=== PATIENT | female | born 1990 | race Caucasian/White ===

== ENCOUNTER 2016-08-14 20:19 | Observation (INO) | payer OTHER ==
[~2016-08-14 20:19] MED LIST: ATIVAN0.5 MG PO; BUTALB-ACETAMI1 EAC2 PO; BUTALBIT-ACETA1 EAC1 PO; CLONAZEPAM1 M2 PO; CLONIDINE HCL0.1 M2 PO; FETZIMA80 M1 PO; IUD; KEPPRA1000 M1 PO; KEPPRA500 M2 PO; KEPPRA500 M3 PO; LEXAPRO20 MG PO; MULTIVITAMINS1 EAC6 PO; NO HOME MEDICATION XX; NORCO 5-325 TA1 EACH PO; OMEPRAZOLE40 M2 PO; PRENATAL VITAMI1 TAB PO; PRENATAL1 EACH PO; TRAMADOL HCL50 M2 PO; VIMPAT150 M1 PO; ZOFRAN ODT4 MG PO
[2016-08-14 21:12] LABS: BASO % 0.2 % (0-2); EOS % 1.1 % (0-7); EOSINOPHIL ABSOLUTE COUNT 0.2 tho/cmm (0.0-0.7); HCT-HEMATOCRIT 42.2 % (34.0-49.0); HGB-HEMOGLOBIN 14.2 gm/dl (12.0-15.5); IMMATURE GRANULOCYTES ABSOLUTE 0.04 tho/cmm (0-0.03); IMMATURE GRANULOCYTES PERCENT 0.3 % (0-0.3); LYMPH % 22.9 % (20-45); LYMPH ABSOLUTE COUNT 3.2 tho/cmm (0.8-4.5); MCH (MEAN CORPUSCULAR HGB) 31.6 pg (28.0-32.0); MCHC MEAN CORPUSCULAR HGB CONC 33.6 % (32.0-36.0); MEAN PLATELET VOLUME 10.2 cmc (9.4-12.4); MONO % 7.3 % (0-12); NEUTROPHIL ABSOLUTE COUNT 9.5 tho/cmm (1.6-8.0); NEUTROPHIL-AUTOMATED 9.5 tho/cmm (1.6-8.0); NEUTROPHILS % 68.2 % (40-80); PLATELET COUNT 412 tho/cmm (150-450); RED BLOOD COUNT 4.49 mil/cmm (4.00-5.20); RED CELL DISTRIBUTION WIDTH 12.2 % (12.4-16.4)
[2016-08-14 21:23] LABS: PREGNANCY-SERUM NEGATIVE (NEGATIVE)
[2016-08-14 21:34] LABS: URINE BILIRUBIN NEGATIVE (NEG); URINE BLOOD NEGATIVE (NEG); URINE GLUCOSE (UA) NEGATIVE (NEG); URINE KETONE NEGATIVE (NEG); URINE LEUKOCYTE ESTERASE NEGATIVE (NEG); URINE NITRITE NEGATIVE (NEG); URINE PROTEIN NEGATIVE (NEG)
[2016-08-14 21:35] LABS: ANION GAP 10 mmol/L (0-20); BLOOD UREA NITROGEN 5 mg/dl (6-24); CALCIUM 8.9 mg/dl (8.5-10.5); CARBON DIOXIDE-VENOUS 25 mmol/L (22-32); CHLORIDE 111 mmol/l (96-110); CREATININE 0.66 mg/dl (0.50-1.10); GLUCOSE 90 mg/dL (70-110); POTASSIUM 3.8 mmol/L (3.7-5.1); SODIUM 142 mmol/L (135-145); URINE APPEARANCE CLEAR; URINE COLOR YELLOW; eGFR VALUE FOR BLACK >90 mL/Min
[2016-08-14] MEDS ORDERED: NEURONTIN100 M1 PO (22:55)
[2016-08-15 08:15] LABS: BASO % 0.3 % (0-2); EOSINOPHIL ABSOLUTE COUNT 0.1 tho/cmm (0.0-0.7); HCT-HEMATOCRIT 41.8 % (34.0-49.0); HGB-HEMOGLOBIN 13.9 gm/dl (12.0-15.5); IMMATURE GRANULOCYTES ABSOLUTE 0.01 tho/cmm (0-0.03); IMMATURE GRANULOCYTES PERCENT 0.1 % (0-0.3); LYMPH % 29.9 % (20-45); LYMPH ABSOLUTE COUNT 2.1 tho/cmm (0.8-4.5); MCH (MEAN CORPUSCULAR HGB) 31.4 pg (28.0-32.0); MCHC MEAN CORPUSCULAR HGB CONC 33.3 % (32.0-36.0); MCV (MEAN CELL VOLUME) 94.6 fl (82.0-96.0); MEAN PLATELET VOLUME 10.2 cmc (9.4-12.4); MONO % 9.7 % (0-12); MONOCYTE ABSOLUTE COUNT 0.7 tho/cmm (0.0-1.2); NEUTROPHIL ABSOLUTE COUNT 4.1 tho/cmm (1.6-8.0); NEUTROPHIL-AUTOMATED 4.1 tho/cmm (1.6-8.0); PLATELET COUNT 366 tho/cmm (150-450); RED BLOOD COUNT 4.42 mil/cmm (4.00-5.20); RED CELL DISTRIBUTION WIDTH 12.3 % (12.4-16.4)
--- NOTE | 2016-08-15 11:40 | NUR ---
DR TSAI HERE. PT TAKEN TO EXAM ROOM IN L&D. IUD REMOVED BY DR TSAI WITHOUT DIFFICULTY
[2016-08-15 14:43] LABS: BASO % 0.1 % (0-2); EOS % 0.7 % (0-7); EOSINOPHIL ABSOLUTE COUNT 0.1 tho/cmm (0.0-0.7); HCT-HEMATOCRIT 42.9 % (34.0-49.0); HGB-HEMOGLOBIN 14.3 gm/dl (12.0-15.5); IMMATURE GRANULOCYTES ABSOLUTE 0.05 tho/cmm (0-0.03); IMMATURE GRANULOCYTES PERCENT 0.4 % (0-0.3); LYMPH ABSOLUTE COUNT 1.9 tho/cmm (0.8-4.5); MCH (MEAN CORPUSCULAR HGB) 31.4 pg (28.0-32.0); MCHC MEAN CORPUSCULAR HGB CONC 33.3 % (32.0-36.0); MCV (MEAN CELL VOLUME) 94.3 fl (82.0-96.0); MEAN PLATELET VOLUME 10.4 cmc (9.4-12.4); MONO % 7.9 % (0-12); MONOCYTE ABSOLUTE COUNT 1.1 tho/cmm (0.0-1.2); NEUTROPHIL ABSOLUTE COUNT 10.3 tho/cmm (1.6-8.0); NEUTROPHIL-AUTOMATED 10.3 tho/cmm (1.6-8.0); NEUTROPHILS % 76.9 % (40-80); PLATELET COUNT 424 tho/cmm (150-450); RED BLOOD COUNT 4.55 mil/cmm (4.00-5.20); RED CELL DISTRIBUTION WIDTH 12.2 % (12.4-16.4)
[2016-08-15 14:58] LABS: WHITE BLOOD COUNT 13.4 tho/cmm (4.0-10.0)
[2016-08-15 15:01] LABS: ANION GAP 11 mmol/L (0-20); BLOOD UREA NITROGEN 3 mg/dl (6-24); CALCIUM 8.2 mg/dl (8.5-10.5); CARBON DIOXIDE-VENOUS 23 mmol/L (22-32); CHLORIDE 114 mmol/l (96-110); CREATININE 0.77 mg/dl (0.50-1.10); MAGNESIUM 2.1 mg/dl (1.3-2.6); POTASSIUM 3.8 mmol/L (3.7-5.1); SODIUM 144 mmol/L (135-145); eGFR VALUE FOR BLACK >90 mL/Min
[2016-08-15 15:06] LABS: GLUCOSE 137 mg/dL (70-110)
[2016-08-15 17:25] LABS: CREATINE PHOSPHOKINASE (CPK) 106 U/L (21-215)
[2016-08-15 17:30] LABS: PROLACTIN 34 ng/ml
[2017-03-09] MEDS ORDERED: NO HOME MEDICATION XX (10:52)
[2017-03-09] MEDS ORDERED: NAPROSYN500 M1 PO (12:20)
[2017-03-09] MEDS ORDERED: NORCO 5-325 TA1 EACH PO (12:20)
== END 2016-08-16 15:35 ==
LOC: EDMED 20:19 → EMR2 23:25 → OBGE 08-15 00:40 → 5EB 08-15 18:45
PROVIDERS: Emergency Medicine; Hospitalist; ADMIT Obstetrics & Gynecology
DX: R10.2 Pelvic and perineal pain (principal); G40.909 Epilepsy, unspecified, not intractable, without status epilepticus; Z79.899 Other long term (current) drug therapy; Z88.5 Allergy status to narcotic agent; Z97.5 Presence of (intrauterine) contraceptive device; Z90.49 Acquired absence of other specified parts of digestive tract; Z98.890 Other specified postprocedural states
CPT/HCPCS: G0378; J0690; J1170; J1885; J1953; J1956; J2060; J2405; J7030

== ENCOUNTER 2016-10-04 09:40 | Emergency (ER) | payer OTHER ==
[~2016-10-04 09:40] MED LIST changes: +NEURONTIN100 M1 PO
[2016-10-04] MEDS ORDERED: NORCO 5-325 TA1 EACH PO (10:26)
[2017-03-09] MEDS ORDERED: NO HOME MEDICATION XX (10:52)
[2017-03-09] MEDS ORDERED: NAPROSYN500 M1 PO (12:20)
[2017-03-09] MEDS ORDERED: NORCO 5-325 TA1 EACH PO (12:20)
== END 2016-10-04 10:37 ==
LOC: EDMED 09:40
DX: S50.12XA Contusion of left forearm, initial encounter (principal); G40.909 Epilepsy, unspecified, not intractable, without status epilepticus; Z79.899 Other long term (current) drug therapy; W01.0XXA Fall on same level from slipping, tripping and stumbling without subsequent striking against object, initial encounter; Y92.019 Unspecified place in single-family (private) house as the place of occurrence of the external cause
CPT/HCPCS: J1170